=== PATIENT | female | born 1990 | race Caucasian/White ===

== ENCOUNTER 2021-11-01 02:55 | Emergency (ER) | payer OTHER ==
[2021-11-01 04:00] VITALS: BMI 39.2
[2021-11-01] MEDS ORDERED: ACETAMINOPHEN 1000 MG/100 ML VIAL IVPB ONE (04:33)
[2021-11-01 05:06] LABS: INR 0.96 (0.83-1.09); PROTHROMBIN TIME (PATIENT) 10.7 SEC (9.7-13.0)
[2021-11-01 05:07] LABS: EPI CELLS 13 /uL (0-25.1); HYALINE CASTS 3 /uL (0-3.1); URINE APPEARANCE CLOUDY; URINE BACTERIA >9,000 /uL (0-1359); URINE BILIRUBIN NEGATIVE (NEGATIVE); URINE COLOR YELLOW; URINE GLUCOSE (UA) NEGATIVE (NEGATIVE); URINE KETONE TRACE (NEGATIVE); URINE LEUK ESTERASE 3+ (NEGATIVE); URINE NITRITE POSITIVE (NEGATIVE); URINE PROTEIN 1+ (NEGATIVE); URINE RBC 38 /uL (0-23.9); URINE WBC 1299 /uL (0-25.8)
[2021-11-01] MEDS ORDERED: ACETAMINOPHEN INJECTION 100 ML IVPB ONE (05:13)
[2021-11-01 05:18] LABS: ALBUMIN 3.6 g/dl (3.4-5.0); BLOOD UREA NITROGEN 15.1 mg/dL (7-18); CALCIUM 8.7 mg/dL (8.5-10.1); MAGNESIUM 2.2 mg/dL (1.8-2.4)
[2021-11-01 05:21] LABS: CREATININE 0.8 mg/dL (0.55-1.3)
[2021-11-01 05:23] LABS: BILIRUBIN,TOTAL 0.2 mg/dL (0.2-1); TOT PROT 7.4 g/dl (6.4-8.2)
[2021-11-01 05:44] LABS: BASO % 0.2 % (0-2.0); EOS % 0.7 % (0-4.5); HEMATOCRIT 42.4 % (32.4-45.2); LYMPH % 13.1 % (8-40); MCH 29.7 pg (25.7-33.7); MEAN CELL VOLUME 89.8 fl (80-96); MEAN PLT VOLUME 9.1 fl (7.5-11.1); MONO % 5.8 % (3.8-10.2); NEUT % 80.2 % (42.8-82.8); PLATELET COUNT 255 10^3/uL (134-434); RBC 4.72 M/mm3 (3.60-5.2); RDW 12.4 % (11.6-15.6); WHITE BLOOD COUNT 12.9 K/mm3 (4.0-10.0)
[2021-11-01 07:48] VITALS: BP 102/67; PULSE 90; TEMP 98.4
== END 2021-11-01 07:50 | disposition home or self-care (01) ==
LOC: JER 02:55
PROC: 3E033GC Introduction of Other Therapeutic Substance into Peripheral Vein, Percutaneous Approach (ICD-10-PCS; principal; 2021-11-01)
DX: N39.0 Urinary tract infection, site not specified (principal)
CPT/HCPCS: 36415; 74176-TC; 76830-TC; 80053; 81003; 83690; 83735; 84703; 85025; 85610; 85730; 87086; 87186; 99285-25; J0131